=== PATIENT | male | born 1980 | race Caucasian/White ===

== ENCOUNTER 2016-04-10 17:04 | Emergency (ER) | payer OTHER ==
[2016-04-10 17:31] VITALS: BP 127/78
--- NOTE | 2016-04-10 20:54 | UC ---
rakel Collier Timothy, scribed for Lilia Mcclendon MD on 04/10/16 at 1739 . FLU HPI - HPI Summary HPI Summary: Christofer Ocampo is a 36 yo male presenting to [facility] with nausea, 3/10 abdominal aches, and diarrhea every 20 minutes since this morning. He states that last week he had exposure to coworkers who had similar symptoms. He also complains of myalgia, but denies any vomiting. He states he has not had much congestion, although he was sick last week with respiratory congestion which resolved spontaneously. He has a Hx of asthma. His is 30 weeks so he wanted to be checked. - History of Current Complaint Stated Complaint: NAUSEA,ACHES,DIARRHEA Time Seen by Provider: 04/10/16 17:34 Hx Obtained From: Patient Onset/Duration: Sudden Onset, Lasting Hours, Still Present Severity Currently: Moderate Severity Initially: Moderate Pain Intensity: 3 Pain Scale Used: 0-10 Numeric Associated Signs & Symptoms: Positive: Myalgia, Diarrhea. Negative: Vomiting Related Hx: Possible Flu/Infectious Exposure - Risk Factors Influenza Risk Factors: Negative - Allergy/Home Medications Allergies/Adverse Reactions: Allergies Allergy/AdvReac Type Severity Reaction Status Date / Time Gluten Meal Allergy Nausea Verified 04/10/16 17:24 SEASONAL Allergy Severe Congestion Uncoded 04/10/16 17:24 Home Medications: Home Medications Budesonide/Formote 160/4.5(NF) [Symbicort 160/4.5 (NF)] 1 puff INH 04/10/16 [ History] PMH/Surg Hx/FS Hx/Imm Hx Respiratory History Of: Reports: Asthma - Surgical History Surgical History: None - Family History Known Family History: Positive: Cardiac Disease, Other - cholangiocarcinoma Negative: Diabetes - Social History Occupation: Employed Full-time Lives: With Family Alcohol Use: Weekly Substance Use Type: None Smoking Status (MU): Never Smoked Tobacco - Immunization History Most Recent Influenza Vaccination: 2015 Most Recent Tetanus Shot: within the last 2 years Review of Systems Constitutional: Negative Skin: Negative Eyes: Negative ENT: Negative Respiratory: Negative Cardiovascular: Negative Gastrointestinal: Abdominal Pain, Diarrhea, Other - nausea Genitourinary: Negative Motor: Negative Neurovascular: Negative Musculoskeletal: Myalgia Neurological: Negative Psychological: Negative All Other Systems Reviewed And Are Negative: Yes Physical Exam Triage Information Reviewed: Yes Appearance: No Pain Distress, Well-Nourished, Ill-Appearing Vital Signs: Initial Vital Signs Temp 98.4 F 04/10/16 17:26 Pulse 70 04/10/16 17:26 Resp 16 04/10/16 17:26 BP 127/78 04/10/16 17:26 Pulse Ox 100 04/10/16 17:26 Vital Signs Reviewed: Yes Eyes: Positive: Conjunctiva Clear ENT: Positive: Hearing grossly normal. Negative: Muffled/hoarse voice Neck: Positive: Supple, Nontender Respiratory: Positive: Lungs clear, Normal breath sounds, No respiratory distress Cardiovascular: Positive: RRR, No Murmur, Pulses Normal, Brisk Capillary Refill Abdomen Description: Positive: Nontender, No Organomegaly, Soft. Negative: CVA Tenderness (R), CVA Tenderness (L), Distended, Guarding, Hernia @, Hepatomegaly , McBurney's Point Tenderness, Peritoneal Signs, Pulsatile Mass, Splenomegaly Bowel Sounds: Positive: Present Musculoskeletal: Positive: Strength Intact, ROM Intact Neurological: Positive: Alert, Muscle Tone Normal Psychological Exam: Normal Skin: Positive: Other - healing biopsy site in LUQ of abdomen Flu Course/Dx - Course Course Of Treatment: Christofer Ocampo is a 36 yo male presenting to [facility] with abdominal aches, diarrhea, and nausea, but denies vomiting. After evaluation he will be discharged home with a note to take work off tomorrow. - Differential Dx/Diagnosis Differential Diagnosis/HQI/PQRI: Influenza, Upper Respiratory Infection, Other - gastroenteritis Provider Diagnoses: Gastroenteritis Discharge - Discharge Plan Condition: Stable Disposition: HOME Patient Education Materials: Gastroenteritis (ED) Forms: *Work Release Referrals: Tal Vaughn MD [Primary Care Provider] - Additional Instructions: Follow up with your primary care physician within two days if your symptoms do not improve. Return to urgent care with any new or recurring symptoms. The documentation as recorded by the rakel biggs Timothy accurately reflects the service I personally performed and the decisions made by , Lilia Mcclendon MD.
== END 2016-04-10 17:58 | disposition home or self-care (01) ==
LOC: UCEAST 17:04
DX: K52.9 Noninfective gastroenteritis and colitis, unspecified (principal)
CPT/HCPCS: 99211; G0463

== ENCOUNTER 2016-11-21 13:23 | Emergency (ER) | payer BC ==
[2016-11-21 13:53] VITALS: BP 109/73
--- NOTE | 2016-11-21 14:25 | UC ---
Skin Complaint HPI - HPI Summary HPI Summary: Patient presents with 7 day onset complaints of rash on his left side, he states it began as vesicles and now is healing. He is worried about his 6 months old daughter. She is fully immunized. He denies fever, chills, redness or drainage from the site. He in not immunosuppressed. - History of Current Complaint Chief Complaint: UCSkin Time Seen by Provider: 11/21/16 13:46 Stated Complaint: SKIN COMPLAINT Hx Obtained From: Patient Onset/Duration: Gradual Onset, Lasting Days Skin Exposure Onset/Duration: Days Ago Timing: Constant Onset Severity: Moderate Current Severity: Mild Location: Discrete - left side . Character: Pruritus, Pain Aggravating: Touch Alleviating: Other - hydrocortisone cream Associated Signs & Symptoms: Positive: Rash - Allergy/Home Medications Allergies/Adverse Reactions: Allergies Allergy/AdvReac Type Severity Reaction Status Date / Time Gluten Meal Allergy Nausea Verified 04/10/16 17:24 SEASONAL Allergy Severe Congestion Uncoded 04/10/16 17:24 Home Medications: Home Medications Albuterol Sulfate [Proventil Hfa] 108 mcg IN 11/21/16 [History] Review of Systems Constitutional: Negative Skin: Rash Eyes: Negative ENT: Negative Respiratory: Negative Cardiovascular: Negative Gastrointestinal: Negative All Other Systems Reviewed And Are Negative: Yes PMH/Surg Hx/FS Hx/Imm Hx Previously Healthy: Yes Other History Of: Negative For: HIV, Hepatitis B, Hepatitis C, Anticoagulant Therapy - Surgical History Surgical History: None - Family History Known Family History: Positive: Cardiac Disease, Other - cholangiocarcinoma Negative: Diabetes - Social History Occupation: Employed Full-time Lives: Alone Alcohol Use: Daily Substance Use Type: None Smoking Status (MU): Never Smoked Tobacco - Immunization History Most Recent Influenza Vaccination: 2015 Most Recent Tetanus Shot: within the last 2 years Physical Exam Triage Information Reviewed: Yes Appearance: Well-Appearing Vital Signs: Initial Vital Signs Temp 97.8 F 11/21/16 13:49 Pulse 58 11/21/16 13:49 Resp 18 11/21/16 13:49 BP 109/73 11/21/16 13:49 Pulse Ox 100 11/21/16 13:49 Vital Signs Reviewed: Yes Eye Exam: Normal ENT Exam: Normal Neck exam: Normal Respiratory Exam: Normal Cardiovascular Exam: Normal Abdominal Exam: Normal Musculoskeletal Exam: Normal Skin Exam: Other - healing herpetic rash at dermatone t7-8. without surrounding induration, or flucuance. Course/Dx - Differential Diagnoses - Skin Complaint Differential Diagnoses: Varicella Zoster - Diagnoses Provider Diagnoses: shingles Discharge - Discharge Plan Condition: Stable Disposition: HOME Patient Education Materials: Shingles (ED)
[2016-11-21] MEDS ORDERED: Gelfoam Sponge SIZE 100* SPONGE TOPICAL ONE (14:40)
[2016-11-21] MEDS ORDERED: Gelfoam 12-7 ADSORBABL SPONGE* 1 EA SPONGE ONE (14:43)
== END 2016-11-21 14:10 | disposition home or self-care (01) ==
LOC: UCEAST 13:23
DX: B02.9 Zoster without complications (principal)
CPT/HCPCS: 99211; A9270-GY; G0463

== ENCOUNTER 2017-12-13 17:32 | Emergency (ER) | payer BC ==
[2017-12-13 17:54] VITALS: BP 111/77
--- NOTE | 2017-12-13 18:22 | UC ---
Skin Complaint HPI - HPI Summary HPI Summary: A 37 y/o male presents to [facility] c/o insect sting on lower right leg reaching 3/ 10 in severity. According to the patient, he was stung by an unknown insect around 1620 PM yesterday. He stated that he took Benadryl yesterday to reduce the swelling. Additionally, he used benadryl cream, loratidine, Ibuprofen today but states has increased swelling. Pt states mild erythema. no fever, chills. no red streaking, Pt denies pain but states feels little fullness in leg and foot. Pt without other complaints. Pt states once previously had similar wound which became infected and is concerned. Not immunocompromised. Denies any calf pain. No allergies to medications. Currently on medications for asthma. Pt medications reviewed this visit. - History of Current Complaint Chief Complaint: UCSkin Time Seen by Provider: 12/13/17 18:00 Stated Complaint: BEE STING Hx Obtained From: Patient Onset/Duration: Sudden Onset, Lasting Days, Still Present Skin Exposure Onset/Duration: Days Ago Timing: Constant Onset Severity: Mild Current Severity: Mild Pain Intensity: 3 Pain Scale Used: 0-10 Numeric Location: Other - Right lower leg Character: Swelling, Redness Aggravating Factor(s): Nothing Alleviating Factor(s): Nothing Associated Signs & Symptoms: Positive: Negative - Allergy/Home Medications Allergies/Adverse Reactions: Allergies Allergy/AdvReac Type Severity Reaction Status Date / Time gluten Allergy GI Upset Verified 12/13/17 17:55 SEASONAL Allergy Severe Congestion Uncoded 04/10/16 17:24 Review of Systems Constitutional: Negative Skin: Other - Swelling of right lower leg Eyes: Negative ENT: Negative Respiratory: Negative Cardiovascular: Negative Gastrointestinal: Negative Genitourinary: Negative Motor: Negative Neurovascular: Negative Musculoskeletal: Negative Neurological: Negative Psychological: Negative Is Patient Immunocompromised?: No All Other Systems Reviewed And Are Negative: Yes PMH/Surg Hx/FS Hx/Imm Hx Previously Healthy: Yes Other History Of: Negative For: HIV, Hepatitis B, Hepatitis C, Anticoagulant Therapy - Surgical History Surgical History: None - Family History Known Family History: Positive: Cardiac Disease, Other - cholangiocarcinoma Negative: Diabetes - Social History Occupation: Employed Full-time Lives: With Family Alcohol Use: Daily Substance Use Type: None Smoking Status (MU): Never Smoked Tobacco - Immunization History Most Recent Influenza Vaccination: fal 2016 Most Recent Tetanus Shot: within the last 2 years Physical Exam - Summary Physical Exam Summary: Vital Signs Reviewed: Yes A+Ox3, no distress Eyes: Conjunctiva Clear ENT: Hearing grossly normal neck: supple Respiratory: Positive: No respiratory distress, No accessory muscle use Cardiovascular: skin color reflect adequate perfusion Musculoskeletal Exam: VORA x 4 without difficulty Neurological: Positive: Alert, ambulatory without difficulty Psychological: Positive: Normal Response To Family Skin: Positive: Pt with erythema, mild edema anterior distal right leg. No fluctance. no discomfort. No red streaking, Pt with apparent sting just inferior lateral to knee on margin of mcfarland. No calf pain. Triage Information Reviewed: Yes Vital Signs: Initial Vital Signs Temp 98.1 F 12/13/17 17:52 Pulse 66 12/13/17 17:52 Resp 12 12/13/17 17:52 BP 111/77 12/13/17 17:52 Pulse Ox 100 12/13/17 17:52 Vital Signs Reviewed: Yes Course/Dx - Course Course Of Treatment: Pt with are of erythema and warmth anterior prox mcfarland - pt with edema in similar area s/p sting yesterday. No current concern for infection. Will Rx pred, elevate. continue loratidine. ice. avoid heat. recommend if increased reddness, red streaking, fever okay to start Abx sent to pharmacy - Diagnoses Provider Diagnoses: local reaction to an insect sting Discharge - Sign-Out/Discharge Documenting (check all that apply): Patient Departure - DISCHARGE All imaging exams completed and their final reports reviewed: No Studies - Discharge Plan Condition: Stable Disposition: HOME Prescriptions: DOXYcycline CAP(*) [DOXYcycline 100MG CAP(*)] 100 mg PO BID #14 cap EPINEPHrine [Epipen 2-Haim] 0.3 mg IJ ONCE #1 auto.injct predniSONE TAB* [Deltasone TAB*] 50 mg PO DAILY #5 tab Patient Education Materials: Insect Bite or Sting (ED) Referrals: No Primary Care Phys,NOPCP [Primary Care Provider] - Additional Instructions: - Take prednisone exactly as prescribed until gone - starting today - Okay to take Benadryl (1-2 tablets) every 6 hours as needed. This medication may cause drowsiness - do NOT drive, operate machinery or drink alcohol while taking Benadryl. If you have to drive, it is okay to put benadryl cream on your wound -take Loratidine daily for 5 days -Avoid getting over heated (hot showers, hot tubs, exercise) for at least 48 hours - Try to avoid aspirin, NSAIDs (Motrin, Aleve, Naprosyn) for 2-3 days - Okay to apply cool compresses to the area of injury - elevate your leg to help with swelling and pain - if you have concerns your wound is getting infected - increased reddness, fever, pain, red streaking - okay to start antibiotics as prescribed -Contact your doctor or return here with questions or concerns - Billing Disposition and Condition Condition: STABLE Disposition: Home - Attestation Statements Document Initiated by Niribe: Yes Documenting Scribe: Arash Perez Provider For Whom Emeka is Documenting (Include Credential): Paloma Srivastava MD Scribe Attestation: Arash Collier, scribed for Paloma Srivastava MD on 12/13/17 at 1901. Scribe Documentation Reviewed: Yes Provider Attestation: The documentation as recorded by the Arash biggs accurately reflects the service I personally performed and the decisions made by me, Paloma Srivastava MD
== END 2017-12-13 18:25 | disposition home or self-care (01) ==
LOC: UCEAST 17:32
DX: T63.441A Toxic effect of venom of bees, accidental (unintentional), initial encounter (principal); M79.89 Other specified soft tissue disorders; Y92.9 Unspecified place or not applicable
CPT/HCPCS: 99212; G0463